=== PATIENT | female | born 1970 | race Caucasian/White ===

== ENCOUNTER 2019-07-10 19:53 | Emergency (ER) | payer OTHER ==
[2019-07-10 20:46] VITALS: BP 114/75; PULSE 94; TEMP 97.9; BMI 28.0
--- NOTE | 2019-07-10 21:22 | PDOC ---
History of Present Illness - General Chief Complaint: Cold Symptoms Stated Complaint: COLD SYMPTOMS Time Seen by Provider: 07/10/19 21:18 - History of Present Illness Initial Comments: 07/10/19 21:20 49-year-old female presents for flulike symptoms x3 days Past History - Past Medical History Home Medications: Ambulatory Orders Oseltamivir Phosphate [Tamiflu] 75 mg PO BID #10 capsule 07/10/19 COPD: No - Psycho Social/Smoking Cessation Hx Smoking History: Never smoked Hx Alcohol Use: No Drug/Substance Use Hx: No Review of Systems - Review of Systems Constitutional: Yes: Fever HEENTM: Yes: Nose Congestion Respiratory: Yes: Cough *Physical Exam - Vital Signs Last Vital Signs Temp Pulse Resp BP Pulse Ox 97.9 F 94 H 20 114/75 100 07/10/19 20:41 07/10/19 20:41 07/10/19 20:41 07/10/19 20:41 07/10/19 20:41 - Physical Exam 07/10/19 21:21 GENERAL: The patient is awake, alert, and fully oriented, in no acute distress. HEAD: Normal with no signs of trauma. EYES: sclera anicteric, conjunctiva clear. ENT: Ears normal tympanic membranes normal oropharynx clear uvula midline NECK: Normal range of motion LUNGS: Breath sounds equal, clear to auscultation bilaterally. No wheezes, and no crackles. HEART: S1 and S2 without murmur, rub or gallop. ABDOMEN: Soft, nontender, normoactive bowel sounds. No guarding, no rebound. No masses. EXTREMITIES: Normal range of motion, no edema. No clubbing or cyanosis. No cords, erythema, or tenderness. NEUROLOGICAL: Cranial nerves II through XII grossly intact. Normal speech, normal gait. PSYCH: Normal mood, normal affect. SKIN: Warm, Dry, normal turgor, no rashes or lesions noted. 07/10/19 21:21 Medical Decision Making - Medical Decision Making 07/10/19 21:21 We will treat for influenza based on positive sick contact at home Discharge - Discharge Information Problems reviewed: Yes Clinical Impression/Diagnosis: Influenza Condition: Stable Disposition: HOME - Admission No - Follow up/Referral Referrals: Sonia Landa [Primary Care Provider] - - Patient Discharge Instructions Additional Instructions: Tylenol and Motrin for fevers. Return to the emergency room for worsening symptoms. Please take the Tamiflu as directed and follow-up with your primary care physician without fail in 1 to 2 days for further evaluation and treatment options. - Post Discharge Activity
== END 2019-07-10 21:33 | disposition home or self-care (01) ==
LOC: JERFT 19:53
DX: J11.1 Influenza due to unidentified influenza virus with other respiratory manifestations (principal)
CPT/HCPCS: 99281-25

== ENCOUNTER 2021-05-12 16:18 | Emergency (ER) | payer OTHER ==
[2021-05-12 16:39] VITALS: PULSE 71; BMI 26.7
[2021-05-12] MEDS ORDERED: ACETAMINOPHEN 500 MG TABLET (FP) PO ONE (17:50)
[2021-05-12] MEDS ORDERED: SODIUM CHLORIDE 0.9% 500 ML INFUS.BAG IV ONE (17:52)
[2021-05-12] MEDS ORDERED: ACETAMINOPHEN 500 MG TABLET (FP) ONE (18:18)
[2021-05-12 19:19] LABS: BASO % 1.1 % (0-2.0); EOS % 1.8 % (0-4.5); HEMATOCRIT 49.3 % (32.4-45.2); HEMOGLOBIN 16.9 GM/dL (10.7-15.3); MCH 30.3 pg (25.7-33.7); MCHC 34.3 g/dl (32.0-36.0); MEAN CELL VOLUME 88.2 fl (80-96); MEAN PLT VOLUME 8.1 fl (7.5-11.1); MONO % 7.2 % (3.8-10.2); NEUT % 62.9 % (42.8-82.8); PLATELET COUNT 163 10^3/uL (134-434); RBC 5.59 M/mm3 (3.60-5.2); RDW 14.5 % (11.6-15.6); WHITE BLOOD COUNT 7.6 K/mm3 (4.0-10.0)
[2021-05-12 19:20] LABS: PH,URINE 5.5 (5.0-8.0); URINE APPEARANCE CLEAR; URINE BILIRUBIN NEGATIVE (NEGATIVE); URINE COLOR YELLOW; URINE GLUCOSE (UA) NEGATIVE (NEGATIVE); URINE KETONE TRACE (NEGATIVE); URINE LEUK ESTERASE NEGATIVE (NEGATIVE); URINE NITRITE NEGATIVE (NEGATIVE); URINE PROTEIN TRACE (NEGATIVE)
[2021-05-12 19:33] LABS: CALCIUM 8.5 mg/dL (8.5-10.1)
[2021-05-12 19:34] LABS: ALBUMIN 3.7 g/dl (3.4-5.0); BLOOD UREA NITROGEN 8.3 mg/dL (7-18)
[2021-05-12 19:37] LABS: CREATININE 0.7 mg/dL (0.55-1.3)
[2021-05-12 19:39] LABS: BILIRUBIN,TOTAL 0.4 mg/dL (0.2-1)
[2021-05-12 20:35] VITALS: BP 105/63; TEMP 98
== END 2021-05-12 21:23 | disposition home or self-care (01) ==
LOC: JER 16:18
DX: R51.9 Headache, unspecified (principal); R05.1 Acute cough; J06.9 Acute upper respiratory infection, unspecified; Z11.52 Encounter for screening for COVID-19
CPT/HCPCS: 36415; 71045-TC-FY; 80053; 81003; 85025; 87086; 99284-25; C9803; U0003; U0005

== ENCOUNTER 2021-10-15 15:29 | Emergency (ER) | payer OTHER ==
[2021-10-15 15:39] VITALS: BP 109/59; PULSE 79; TEMP 98.1; BMI 26.6
[2021-10-15] MEDS ORDERED: morphine CARPU-JECT 4 MG/1 ML DISP.SYRIN IVPUSH ONE (15:59)
[2021-10-15] MEDS ORDERED: morphine SULFATE 4 MG/ML VIAL ONE (16:07)
[2021-10-15 16:32] LABS: BASO % 0.9 % (0-2.0); EOS % 0.8 % (0-4.5); HEMATOCRIT 48.6 % (32.4-45.2); HEMOGLOBIN 16.9 GM/dL (10.7-15.3); MCH 30.7 pg (25.7-33.7); MCHC 34.8 g/dl (32.0-36.0); MEAN CELL VOLUME 88.1 fl (80-96); MEAN PLT VOLUME 8.3 fl (7.5-11.1); MONO % 5.2 % (3.8-10.2); NEUT % 57.1 % (42.8-82.8); PLATELET COUNT 171 10^3/uL (134-434); RBC 5.51 M/mm3 (3.60-5.2); RDW 14.2 % (11.6-15.6); WHITE BLOOD COUNT 7.7 K/mm3 (4.0-10.0)
[2021-10-15 16:50] LABS: ALBUMIN 3.7 g/dl (3.4-5.0); BLOOD UREA NITROGEN 9.2 mg/dL (7-18)
[2021-10-15 16:54] LABS: CREATININE 0.9 mg/dL (0.55-1.3); INR 1.09 (0.83-1.09); PROTHROMBIN TIME (PATIENT) 12.6 SEC (9.7-13.0)
[2021-10-15 16:55] LABS: BILIRUBIN,TOTAL 0.4 mg/dL (0.2-1)
[2021-10-15 16:56] LABS: TOT PROT 6.7 g/dl (6.4-8.2)
[2021-10-15 16:57] LABS: ACTIVATED PTT 27.8 SECONDS (25.2-36.5)
[2021-10-15] MEDS ORDERED: ACETAMINOPHEN 500 MG TABLET (FP) PO ONE (18:48)
[2021-10-15] MEDS ORDERED: ACETAMINOPHEN 325 MG TABLET (FP) ONE (19:21)
[2021-10-15] MEDS ORDERED: MIDAZOLAM HCL 2 MG/2 ML SINGLE DOSE VIAL IVPUSH ONE (19:56)
[2021-10-15] MEDS ORDERED: MIDAZOLAM HCL 2 MG/2 ML SINGLE DOSE VIAL ONE (20:03)
== END 2021-10-15 20:59 | disposition home or self-care (01) ==
LOC: JER 15:29
PROC: 3E033GC Introduction of Other Therapeutic Substance into Peripheral Vein, Percutaneous Approach (ICD-10-PCS; principal; 2021-10-15)
DX: M25.572 Pain in left ankle and joints of left foot (principal)
CPT/HCPCS: 36415; 73562-TC-LT-FY; 73590-TC-LT-FY; 73610-TC-LT-FY; 73630-TC-LT; 80053; 84703; 85025; 85610; 85730; 86850; 86900; 86901; 99284-25

== ENCOUNTER 2022-03-01 20:28 | Emergency (ER) | payer OTHER ==
[2022-03-01 20:36] VITALS: BP 118/74; PULSE 65; RESP 18; TEMP 97.9; BMI 27.3
== END 2022-03-01 23:45 | disposition home or self-care (01) ==
LOC: JERFT 20:28
DX: M54.50 Low back pain, unspecified (principal)
CPT/HCPCS: 72131-TC; 99284-25

== ENCOUNTER 2022-07-20 15:38 | Emergency (ER) | payer OTHER ==
[2022-07-20 15:45] VITALS: BP 111/64; PULSE 65; RESP 16; TEMP 97.9; BMI 32.5
[2022-07-20] MEDS ORDERED: LIDOCAINE 5% TOPICAL PATCH TP ONE (16:53)
[2022-07-20] MEDS ORDERED: KETOROLAC TROMETHAMINE 30 MG/1 ML VIAL IM ONE (16:53)
[2022-07-20] MEDS ORDERED: KETOROLAC TROMETHAMINE 30 MG/1 ML VIAL ONE (17:00)
[2022-07-20] MEDS ORDERED: LIDOCAINE 5% TOPICAL PATCH ONE (17:00)
[2022-07-21] MEDS ORDERED: LIDOCAINE PATCH REMOVAL MC SCH (05:00)
== END 2022-07-20 17:10 | disposition home or self-care (01) ==
LOC: JERFT 15:38
PROC: 3E023GC Introduction of Other Therapeutic Substance into Muscle, Percutaneous Approach (ICD-10-PCS; principal; 2022-07-20)
DX: M54.41 Lumbago with sciatica, right side (principal)
CPT/HCPCS: 99284-25

== ENCOUNTER 2022-07-29 04:24 | Day surgery (SDC) | payer OTHER ==
[2022-07-26 10:26] VITALS: BMI 25.5
[2022-07-29] MEDS ORDERED: BUPIVACAINE HCL/PF 0.5% (5MG/ML) 10 ML VIAL ONE (13:42)
[2022-07-29] MEDS ORDERED: MIDAZOLAM HCL 2 MG/2 ML SINGLE DOSE VIAL ONE (14:10)
[2022-07-29] MEDS ORDERED: ROPIVACAINE HCL 0.5% 30ML VIAL ONE (14:10)
[2022-07-29] MEDS ORDERED: DEXAMETHASONE SOD PHOSPHATE 10 MG/1 ML VIAL ONE (14:10)
[2022-07-29 19:43] VITALS: RESP 20; TEMP 97.2
[2022-07-29 19:46] VITALS: BP 110/68; PULSE 50
== END 2022-07-29 19:35 | disposition home or self-care (01) ==
LOC: JASU-SURG 04:24
PROVIDERS: ATTEND Podiatrist Foot & Ankle Surgery
PROC: 0SBG4ZZ Excision of Left Ankle Joint, Percutaneous Endoscopic Approach (ICD-10-PCS; principal; 2022-07-29 14:54)
PROC: 0MQR4ZZ Repair Left Ankle Bursa and Ligament, Percutaneous Endoscopic Approach (ICD-10-PCS; 2022-07-29 14:54)
PROC: 0MQR0ZZ Repair Left Ankle Bursa and Ligament, Open Approach (ICD-10-PCS; 2022-07-29 14:54)
DX: S86.302A Unspecified injury of muscle(s) and tendon(s) of peroneal muscle group at lower leg level, left leg, initial encounter (principal); S93.492A Sprain of other ligament of left ankle, initial encounter; M65.872 Other synovitis and tenosynovitis, left ankle and foot; M25.572 Pain in left ankle and joints of left foot; X58.XXXA Exposure to other specified factors, initial encounter; Y93.9 Activity, unspecified; Y92.9 Unspecified place or not applicable; Y99.9 Unspecified external cause status
CPT/HCPCS: 27658; 27695; 29897; C1713; 73610-TC-LT-FY; 73630-TC-LT; 88304-TC; 94760; C1776; J1100

== ENCOUNTER 2022-08-01 15:13 | Emergency (ER) | payer OTHER ==
[2022-08-01 15:43] VITALS: BP 107/61; PULSE 70; RESP 18; TEMP 98.5; BMI 27.8
[2022-08-01] MEDS ORDERED: KETOROLAC TROMETHAMINE 15 MG/ML VIAL IVPUSH ONE (17:04)
[2022-08-01] MEDS ORDERED: KETOROLAC TROMETHAMINE 15 MG/ML VIAL ONE (17:40)
== END 2022-08-01 18:01 | disposition left against medical advice (07) ==
LOC: JER 15:13
PROC: 3E0333Z Introduction of Anti-inflammatory into Peripheral Vein, Percutaneous Approach (ICD-10-PCS; principal; 2022-08-01)
DX: M25.572 Pain in left ankle and joints of left foot (principal)
CPT/HCPCS: 96374; 99284-25

== ENCOUNTER 2023-11-20 13:32 | Emergency (ER) | payer OTHER ==
[2023-11-20 13:51] VITALS: BP 136/70; PULSE 83; RESP 18; TEMP 98.5; BMI 27.3
[2023-11-20] MEDS ORDERED: CYCLOBENZAPRINE HCL 10 MG TABLET (FP) ONE (15:05)
[2023-11-20] MEDS ORDERED: IBUPROFEN 600 MG TABLET (FP) PO ONE (15:05)
[2023-11-20] MEDS: IBUPROFEN 600 MG TABLET (FP) PO ONE (15:08)
[2023-11-20] MEDS: CYCLOBENZAPRINE HCL 10 MG TABLET (FP) PO ONE (15:08)
== END 2023-11-20 16:20 | disposition home or self-care (01) ==
LOC: JER 13:32
DX: R07.81 Pleurodynia (principal)
CPT/HCPCS: 71101-TC-RT-FY; 93005; 93010; 99284-25

== ENCOUNTER 2023-12-28 16:38 | Emergency (ER) | payer OTHER ==
[2023-12-28 16:46] VITALS: BP 107/62; PULSE 75; RESP 18; TEMP 98.3; BMI 27.3
== END 2023-12-28 18:26 | disposition home or self-care (01) ==
LOC: JERFT 16:38
DX: U07.1 COVID-19 (principal); J06.9 Acute upper respiratory infection, unspecified; R50.9 Fever, unspecified; R05.9 Cough, unspecified; R09.81 Nasal congestion
CPT/HCPCS: 0241U-QW; 99283-25